=== PATIENT | female | born 1955 | race Caucasian/White ===

== ENCOUNTER 2021-03-12 17:06 | Emergency (ER) | payer BC, SELFPAY ==
--- NOTE | ~2021-03-12 | XR_ITS ---
EXAMINATION: XR CHEST CLINICAL INFORMATION: Chest pain. COMPARISON: Chest radiograph dated from 12/23/2018. TECHNIQUE: PA view of the chest was obtained. FINDINGS: No significant abnormality is noted involving the heart, lungs, mediastinum, bony thorax or soft tissues. XR/XR chest 1V IMPRESSION: No acute pulmonary disease. No significant change from prior.
--- NOTE | 2021-03-12 19:12 | ECG_ITS ---
Test Reason : CHEST PAIN Blood Pressure : / mmHG Vent. Rate : 055 BPM Atrial Rate : 055 BPM P-R Int : 142 ms QRS Dur : 078 ms QT Int : 422 ms P-R-T Axes : 070 032 038 degrees QTc Int : 403 ms Sinus bradycardia Otherwise normal ECG When compared with ECG of 23-DEC-2018 13:28, Nonspecific T wave abnormality is no longer Present Referred By: Generic ED Physician Electronically Signed By:JONATHAN CORTEZ MD
[2021-03-12 19:37] VITALS: BP 141/86; PULSE 65; RESP 16; TEMP 36.8; O2SAT 99; BMI 23.9
[2021-03-12 19:39] LABS: MANUAL DIFF FLAG NO
[2021-03-12 19:40] LABS: Basophils Percent Auto 0.4 % (0-2); Eosinophils Absolute Auto 0.1 X10*3/uL (0.0-0.4); Eosinophils Percent Auto 0.8 % (0-4); Imm Gran Abs Auto 0.01 X10*3/uL (0.00-0.03); Imm Gran Pct Auto 0.1 % (0.0-0.4); Lymphocytes Absolute Auto 2.9 X10*3/uL (1.2-4.9); Lymphocytes Percent Auto 34.5 % (20-40); Mean Corpuscular HGB Conc 32.6 g/dl (31.0-35.0); Mean Corpuscular Hemoglobin 29.7 pg (27.0-33.0); Mean Corpuscular Volume 91.1 fL (80-98); Mean Platelet Volume 12.4 fL (9.4-12.3); Monocytes Absolute Auto 0.6 X10*3/uL (0.1-1.2); Monocytes Percent Auto 6.8 % (2-11); Neutrophils Absolute Auto 4.8 X10*3/uL (2.0-8.3); Neutrophils Percent Auto 57.4 % (45-73); Platelet Count 217 X10*3/uL (160-400); Red Blood Count 4.72 X10*6/uL (4.20-5.50); Red Cell Distribution Width 12.8 % (11.0-16.0); White Blood Count 8.3 X10*3/uL (4.8-10.8)
[2021-03-12 20:00] LABS: Troponin-I High Sensitivity 5.4 ng/L (<3.5-17.0)
[2021-03-12 20:04] LABS: Anion Gap 12 (12-20); Blood Urea Nitrogen 15 mg/dL (9-16); Calcium 10.1 mg/dL (8.4-10.2); Carbon Dioxide 27 mmol/L (22-29); Chloride 108 mmol/L (96-108); Creatinine Clr Calc Pharmacy 50.4; Estimated Glomerular Filt Rate > 60; Glucose Random 95 mg/dL (60-115); Potassium 4.4 mmol/L (3.3-5.1); Sodium 143 mmol/L (135-145)
--- NOTE | 2021-03-12 22:54 | ED_ITS ---
HPI - Arrhythmia/Palpitations General Chief Complaint: Arrhythmia/Palpitations Stated Complaint: chest pain Time Seen by Provider: 03/12/21 22:53 Source: patient Mode of arrival: ambulatory Limitations: no limitations History of Present Illness complaint: rapid heart beat and heart racing Onset (ago): hour(s) (5+) Duration: now resolved Severity: moderate Context: occurred during rest Arrhythmia history: other (PALPITATIONS) Associated symptoms: anxiety Related Data Allergies Allergy/AdvReac Type Severity Reaction Status Date / Time No Known Allergies Allergy Verified 03/12/21 19:36 Review of Systems Review of Systems: Constitutional : No Weight loss, No Fever, No Chills ENT/Mouth : No sore throat, No Rhinorrhea Eyes: No Eye Pain, No Swelling Cardiovascular : no Chest Pain, no SOB, no Dyspnea on Exertion, No Orthopnea, No Edema, pos Palpitations Respiratory : No Cough, No Sputum Gastrointestinal : no Nausea, No Vomiting, No Diarrhea, No abdominal Pain, No Hematochezia, No Melena Genitourinary : No Dysuria, No Urinary Frequency Musculoskeletal : No joint pain, No Myalgias, No Joint Swelling Skin : No Skin Lesions, No rash Neuro : No Weakness, No Numbness, No Dizziness, No Headache Psych : pos Anxiety/Panic, No Depression Heme/Lymph: No Bruising, No Lymphadenopathy Endocrine : No Polyuria, No Polydipsia All other systems reviewed and are negative [facility] Past Medical History Attestation statement: The following information was validated with the patient. Medical History Hypertension Social History Social History (Updated 03/13/21 @ 00:04 by Jennifer Tenorio DO) Patient Tobacco Use Status: Never used Tobacco Physical Exam Vital Signs: Vital Signs: Last Vital Signs Temp 98.2 F 03/12/21 19:37 Pulse 49 L 03/12/21 23:27 Resp 16 03/12/21 23:27 BP 131/47 L 03/12/21 23:27 Pulse Ox 100 03/12/21 23:27 Body Mass Index 23.9 Appearance: Alert. Oriented X3. No acute distress. Eyes: Pupils equal, round and reactive to light. ENT: Pharynx normal. Neck: Normal inspection. Neck supple. CVS: Normal heart rate and rhythm. Pulses normal. Respiratory: No respiratory distress. Breath sounds normal. Abdomen: Soft and non-tender. Skin: Skin warm and dry. Normal skin color. Normal skin turgor. Extremities: No lower extremity edema. No calf ttp Neuro: Oriented X 3. No motor deficit. No sensory deficit. Course Course Course Narrative: flat trop x 2 MDM - Arrhythmia/Palpitations MDM Narrative Medical decision making narrative: 65 yo female with hx of HTN and palpitations has resolved episode - no pain or sob or signs of DVT/risk factors for VTE - doubt PE, seems unusual for ACS, will obtain repeat trop if negative suspect induced stress from her job Lab Data Result diagrams: 03/12/21 19:28 03/12/21 19:28 Labs: Lab Results 03/12/21 03/12/21 03/12/21 Range/Units 19:28 19:28 19:28 WBC 8.3 (4.8-10.8) X10*3/uL RBC 4.72 (4.20-5.50) X10*6/uL Hgb 14.0 (12.0-16.0) g/dl Hct 43.0 (37-47) % MCV 91.1 (80-98) fL MCH 29.7 (27.0-33.0) pg MCHC 32.6 (31.0-35.0) g/dl RDW 12.8 (11.0-16.0) % Plt Count 217 (160-400) X10*3/uL MPV 12.4 H (9.4-12.3) fL Immature Gran % (Auto) 0.1 (0.0-0.4) % Neut % (Auto) 57.4 (45-73) % Lymph % (Auto) 34.5 (20-40) % Edwards % (Auto) 6.8 (2-11) % Eos % (Auto) 0.8 (0-4) % Baso % (Auto) 0.4 (0-2) % Lymph # (Auto) 2.9 (1.2-4.9) X10*3/uL Edwards # (Auto) 0.6 (0.1-1.2) X10*3/uL Eos # (Auto) 0.1 (0.0-0.4) X10*3/uL Baso # (Auto) 0.0 (0.0-0.2) X10*3/uL Abs Immat Gran (auto) 0.01 (0.00-0.03) X10*3/uL Absolute Neuts (auto) 4.8 (2.0-8.3) X10*3/uL Absolute Nucleated RBC 0.000 (0.0-0.012) X10*3/uL Nucleated RBC % (auto) 0.0 (0.0-0.2) /100WBC Sodium 143 (135-145) mmol/L Potassium 4.4 (3.3-5.1) mmol/L Chloride 108 (96-108) mmol/L Carbon Dioxide 27 (22-29) mmol/L Anion Gap 12 (12-20) BUN 15 (9-16) mg/dL Creatinine 0.92 (0.5-1.4) mg/dL Estim Creat Clear Calc 50.4 Estimated GFR > 60 Random Glucose 95 (60-115) mg/dL Calcium 10.1 (8.4-10.2) mg/dL Troponin I High Sens 5.4 (<3.5-17.0) ng/L 03/12/21 Range/Units 23:26 WBC (4.8-10.8) X10*3/uL RBC (4.20-5.50) X10*6/uL Hgb (12.0-16.0) g/dl Hct (37-47) % MCV (80-98) fL MCH (27.0-33.0) pg MCHC (31.0-35.0) g/dl RDW (11.0-16.0) % Plt Count (160-400) X10*3/uL MPV (9.4-12.3) fL Immature Gran % (Auto) (0.0-0.4) % Neut % (Auto) (45-73) % Lymph % (Auto) (20-40) % Edwards % (Auto) (2-11) % Eos % (Auto) (0-4) % Baso % (Auto) (0-2) % Lymph # (Auto) (1.2-4.9) X10*3/uL Edwards # (Auto) (0.1-1.2) X10*3/uL Eos # (Auto) (0.0-0.4) X10*3/uL Baso # (Auto) (0.0-0.2) X10*3/uL Abs Immat Gran (auto) (0.00-0.03) X10*3/uL Absolute Neuts (auto) (2.0-8.3) X10*3/uL Absolute Nucleated RBC (0.0-0.012) X10*3/uL Nucleated RBC % (auto) (0.0-0.2) /100WBC Sodium (135-145) mmol/L Potassium (3.3-5.1) mmol/L Chloride (96-108) mmol/L Carbon Dioxide (22-29) mmol/L Anion Gap (12-20) BUN (9-16) mg/dL Creatinine (0.5-1.4) mg/dL Estim Creat Clear Calc Estimated GFR Random Glucose (60-115) mg/dL Calcium (8.4-10.2) mg/dL Troponin I High Sens 5.2 (<3.5-17.0) ng/L ECG Data Attestation: I personally reviewed and interpreted this ECG as follows: ECG interpretation date: 03/12/21 ECG interpretation time: 22:54 Interpretation: Rate: 55 Rhythm: sinus bradycardia [place]: normal Normal P waves. Normal LAURENCE. Normal QRS complex. ST T wave : nonspecific, no ISABELLA qTC: normal prior studies: no acute ischemia The study has been interpreted contemporaneously by me. . Discharge Plan Discharge Clinical Impression: Palpitations Patient Disposition: Home, Self-Care Instructions: Heart Palpitations (ED) Additional Instructions: return to ED for any worsening symptoms or concerns follow up with your primary care if this persists Stand Alone Forms: Work/School Release
--- NOTE | 2021-03-12 23:22 | PC.NURSE ---
at bed side. PT being drawn for troponin lab now.
--- NOTE | 2021-03-12 23:26 | PC.NURSE ---
at bedside for primary eval. Repeat Troponin obtained and sent. VSS at this time.
[2021-03-12 23:27] VITALS: BP 131/47; PULSE 49; RESP 16; O2SAT 100
[2021-03-12 23:55] LABS: Troponin-I High Sensitivity 5.2 ng/L (<3.5-17.0)
== END 2021-03-13 00:26 | disposition home or self-care (01) ==
LOC: HO.ED 03-13 00:17
PROVIDERS: Emergency Provider Emergency Medicine; PCP Internal Medicine
DX: R00.2 Palpitations (principal); R07.9 Chest pain, unspecified; F41.1 Generalized anxiety disorder; F43.0 Acute stress reaction; Z79.899 Other long term (current) drug therapy
CPT/HCPCS: 36415; 71045; 80048; 84484; 85025; 93005; 99284

== ENCOUNTER 2024-10-22 19:50 | Emergency (ER) | payer MEDICARE, SELFPAY ==
--- NOTE | ~2024-10-22 | XR_ITS ---
CLINICAL HISTORY: FOOSH 3 view left hand Comparison: None Findings: Osteopenia. Obliquely oriented lucency of the articulation of the distal radial carpal row of the trapezium/trapezoid, may be artifactual related to projection, seen only on series 1, versus subtle fracture. If concern persists CT or MRI to assess for marrow edema may be helpful. Severe osteoarthritic changes in the 1st carpometacarpal joint. No radiopaque foreign body. Mildly diffuse soft tissue swelling. IMPRESSION: Artifact versus subtle nondisplaced fracture along the distal radiocarpal row described. This document has been electronically signed by: José Miguel Vallejo MD on 10/22/2024 20:37:52
--- NOTE | ~2024-10-22 | XR_ITS ---
CLINICAL HISTORY: FOOSH 4 view left wrist Comparison: None Findings: Osteopenia. No acute fracture. Severe osteoarthritic changes of the 1st carpometacarpal joint. No radiopaque foreign body. Mildly diffuse soft tissue swelling. IMPRESSION: No acute fracture. This document has been electronically signed by: José Miguel Vallejo MD on 10/22/2024 20:38:27
[2024-10-22 19:52] VITALS: BP 155/75; PULSE 67; RESP 16; TEMP 36.8; O2SAT 97; BMI 23.9
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
--- OUTSIDE RECORDS SUMMARY | 2024-10-22 22:05 | XMS_ITS | Patient Health Record ---
Author Organization [facility] Address [address] [place] [address] Care Team Providers Care Assistant Media Planner Name Role Phone Todd Pretty VALDES Primary Care Provider Unavail able Freddie Cunningham Unavailable [phone] Allergies No Known Allergies Reason For Referral No Information Medications Medication SIG (Take, Route, Frequency, Duration) Notes Start Date End Date Status amLODIPine Besylate 2.5 MG TAKE 1 TABLET BY MOUTH EVERY DAY Oral for 90 Days Active Lisinopril 20 MG Oral for 90 A ctive Calcium Citrate Acti ve Estradiol 0.1 MG/GM _insert 1 GRAM VAGINALLY TWICE A WEEK Vaginal for 90 Days Active Voltaren 1 % as directed Externally 12/20/2023 Active Escitalopram Oxalate 5 MG TAKE 1 TABLET BY MOUTH EVERY DAY Oral for 90 Days Not-Taking Vitamin D Active Glucosamine Chond MSM Formula Active Social History Tobacco Use: Social History Observation Description Date Details (start date - stop date) Former Smoker NA - NA Tobacco Use/Smoking Question Answer Notes Are you a: former smoker Additional Findings: Tobacco Non-User Current no n-smoker Alcohol Screen Question Answer Notes Did you have a drink containing alcohol in the p ast year? No Points 0 Interpretation Negative Tobacco use other than smoking: Question Answer Notes Are you an other tobacco user? No Problems Problem Type SNOMED Code ICD Code Onset Dates Problem Status W/U Status Risk Notes Problem Acquired hallux rigidus (5260281) Hallux rigidus, left foot (M20.22) Active confirmed Problem Acquired hallux rigidus (8445242) Hallux rigidus, right foot (M20.21) Active confirmed Vital Signs Height 5 ft 3 in in 12/20/2023 Weight 140 lbs 12/20/2023 BMI 24.80 kg/m2 12/20/2023 Encounters Encounter Location Date Provider Diagnosis [facility] [address] [address] 12/20/2023 Freddie Cunningham Pain in left foot M79.672 ; Pain in right foot M79.671 ; Hallux rigidus, left foot M20.22 and Hallux rigidus, right foot M20.21 [facility] [address] [address] 11/01/2023 Freddie Cunningham Assessments Encounter Date Diagnosis (ICD Code) Assessment Notes Treatment Notes Treatment Clinical Notes Section Notes 12/20/2023 Pain in right foot (ICD-10 - M79.671) 12/20/2023 Pain in left foot (ICD-10 - M79.672) 12/20/2023 Hallux rigidus, left foot (ICD-10 - M20.22) 12/20/2023 Hallux rigidus, right foot (ICD-10 - M20.21) Plan Of Treatment Pending Test Test Name Order Date X ray : Foot, left 2V 01/24/2014 X ray : Foot, right 2V 01/24/2014 X ray : Foot, left 3V 12/20/2023 X ray : Foot, left 3V 2020 X ray : Foot, right 3V 12/20/2023 X ray : Foot, right 3V 2020 Insurance Providers Payer Name Payer Address Payer Phone Subscriber Number Group Number Insured Name Patient Relationship to Insured Coverage Start Date Coverage End Date [employer] 65 Medicare Preferred [address] [place] [address] [phone] [id number] Trinidad Raymond Self - patient is the insured Medical (General) History Medical History History ICD Code Arthritis High blood pressure Measles Warts Hallux Valgus 735.0 Hallux Valgus 729.5 Pain in Limb 719.97 Arthritis - Degenerative 726.91 Exostosis 735.4 Hammer toe undefined Anxiety Back,Hip,and Knee pain covid-19 Surgical History Surgery Date(Month/Year) section 1979 bunionectomy L & R 2009 Hospitalization History Reason Date(Month/Year) [facility] ? heart attack 2013
--- OUTSIDE RECORDS SUMMARY | 2024-10-22 22:05 | XMS_ITS ---
[facility] Address [address] [place] [address] Care Team Providers Care Transmission Mechanic Name Role Phone Todd Pretty VALDES Primary Care Provider Unavail able Freddie Cunningham Unavailable [phone] Allergies No Known Allergies REASON FOR VISIT Last PCP Viisit: 11/2023, Foot pain Medications Medication SIG (Take, Route, Frequency, Duration) Notes Start Date End Date Status Calcium Citrate Acti ve Voltaren 1 % as directed Externally 12/20/2023 Active Escitalopram Oxalate 5 MG TAKE 1 TABLET BY MOUTH EVERY DAY Oral for 90 Days Not-Taking Vitamin D Active Glucosamine Chond MSM Formula Active amLODIPine Besylate 2.5 MG TAKE 1 TABLET BY MOUTH EVERY DAY Oral for 90 Days Active Lisinopril 20 MG Oral for 90 A ctive Estradiol 0.1 MG/GM _insert 1 GRAM VAGINALLY TWICE A WEEK Vaginal for 90 Days Active Social History Tobacco Use: Social History [...] Are you an other tobacco user? No Vital Signs Height 5 ft 3 in in 12/20/2023 Weight 140 lbs 12/20/2023 BMI 24.80 kg/m2 12/20/2023 Encounters Encounter Location Date Provider Diagnosis [facility] [address] [place] [address] 12/20/2023 Freddie Cunningham Pain in left foot M79.672 ; Pain in right foot M79.671 ; Hallux rigidus, left foot M20.22 and Hallux rigidus, right foot M20.21 Assessments Encounter Date Diagnosis (ICD Code) Assessment Notes Treatment Notes Treatment Clinical Notes Section Notes 12/20/2023 Pain in left foot (ICD-10 - M79.672) 12/20/2023 Pain in right foot (ICD-10 - M79.671) 12/20/2023 Hallux rigidus, left foot (ICD-10 - M20.22) 12/20/2023 Hallux rigidus, right foot (ICD-10 - M20.21) Plan Of Treatment Medication Medication Name Sig Start Date Stop Date Notes Voltaren 1 % as directed Externally 12/20/2023 Pending Test Test Name Order Date X ray : Foot, left 3V 12/20/2023 X ray : Foot, right 3V 12/20/2023 Next Appt Details Follow Up: prn, Reason: Progress Notes * Trinidad CELAYA HDOB:1954 (68 yo F)Acc No.[id number]:12/20/2023 Progress Notes Patient:?Segundo Trinidad H Provider:?Freddie Cunningham DPM :1955???Age:68 Y???Sex:Female D ate:12/20/2023 Address:[address] [place], [place] [id number] Pcp:KEISHA Mac Subjective: * Chief Complaints: * ??? Last PCP Viisit: 11/2023F oot pain * HPI: ???Foot Pain:?Nature:?aching, stiffness.?Location?B/L, Great toe joint, L>R.?Duration:?several months.?Course:?worse.?Aggrevated:?shoes.?Treatments:?previous cheilectomy wilner first mtpj 2010 by myself.?Quality/Severity?5, scale 1-10--left at worst and currently painfree.? * ROS:?General/Constitutional:?Nausea?denies, denies.?Vomiting?denies, denies.?Hunger Thirst?denies, denies.?Loss appetite?denies, denies.?Chills?denies, denies.?Fatigue?denies, denies.?Fever?denies, denies.?Night Sweats denies, denies.?Unexplained weight loss?denies, denies.?Unexplained weight gain?denies.?Ophthalmologic:?Blurred vision?denies.?Red eye?denies.?HEENTM:?Dentures?denies, denies.?Dizziness?admits, denies.?Glasses/contacts?admits, denies.?Retinopathy?denies, denies.?Blurred/double vision?denies, denies.?TMJ?denies, denies.?Discharge/drainage?denies, denies.?Implants?denies, denies.?Sore throat?denies.?Dental implants?denies.?Hard of hearing ?denies, denies.?Difficulty chewing/swallowing/speaking?denies, denies.?Nose bleeds?denies, denies.?Sore mouth?denies, denies.?Swollen glands?denies.?Respiratory:?On Oxygen?denies, denies.?Pneumonia/pleurisy?denies, denies.?Bronchitis?denies, denies.?Emphysema?denies, denies.?Coughing?denies, denies.?Cough blood?denies, denies.?Shortness of breath?denies, denies.?Wheezing?denies, denies.?Cardiovascular:?Pacemaker?denies, denies.?MVP?denies, denies.?WPW?denies, denies.?CHF?denies, denies.?Heart attack?denies, denies.?Septal defect?denies, denies.?Rapid beat?denies, denies.?Chest pain ?admits, denies.?Atrial Fib.?denies, denies.?Murmur/Palpitations?denies, denies.?Gastrointestinal:?Hemorrhoids?denies, denies.?Stomach/Abdominal pain?denies, denies.?Dark blood stool?denies, denies.?Irritable bowel ?denies, denies.?Constipation?admits, denies.?Diarrhea?denies, denies.?Vomiting?denies.?Hematology:?Swelling?denies, denies.?Clots?denies.?Varicose Veins?denies.?Bruising?denies, denies.?Bleeding problem?denies, denies.?Genitourinary:?Blood urine?denies, denies.?Frequent/Painfu/urination/bladder control?denies, denies.?Kidney stones?denies, denies.?Infection (UTI)?denies, denies.?Nephropathy?denies, denies.?sex trans dis (STD)?denies.?Prostate?denies.?Musculoskeletal:?Hammertoes?admits, denies.?Bunions?admits, denies.?Scoliosis/kyphosis?denies.?Back Pain?admits.?Muscle Cramps/ Resting?denies.?Muscle cramps / walking?denies, denies.?Generalized aches and pains?admits, denies.?Weakness?denies, denies.?Integ.:?Powell?denies, denies.?Scars?denies, denies.?Corns/calluses?denies, denies.?Ingrown nails?denies, denies.?Painful nails?denies, denies.?Open Sores?denies.?Rashes?denies, denies.?Neurologic:?Difficulty sleeping?denies, denies.?Bipolar?denies.?Brain disorder?denies, denies.?Numbness?admits.?Balance trouble?denies, denies.?Confusion?denies, denies.?Fainting/blackouts?denies, denies.?Headache?denies.?Tingling?denies.?Tremors?denies, denies.? * Medical History:? * Surgical History:? s ection 1979bunionectomy L & R 2009 * Hospitalization/Major Diagno stic Procedure:?[facility]- ? heart attack 2012 * Family History:?Mother: dece ased, poor circulation, alzheimer's dementia, diagnosed with Unspecified essential hypertension.?Father: , ALS, diagnosed with Unspecified essential hypertension.?Son(s): alive.?Siblings: cancer, diabetes, high blood pressure.?Spouse: alive.?1 son(s) . .? * Social History:?Tobacco Use:?Tobacco Use/Smoking?Are you a:?former smoker ?Additional Findings: Tobacco Non-User?Current non-smoker ?Tobacco use other than smoking?Are you an other tobacco user??No ???Drugs/Alcohol:?Drugs?Have you used drugs other than those for medical reasons in the past 12 months??No ?Alcohol Screen?Did you have a drink containing alcohol in the past year??No ?Points?0 ?Interpretation?Negative ???Miscellaneous:?Caffeine: yes, 2-3 cups per day. ?Children: 1. ?Exercise: yes, walking and bike riding. ?Living with: spouse. ?Marital status: , . ?Occupation: [employer]. * Medications:?TakingamLODIPin e Besylate 2.5 MG Tablet TAKE 1 TABLET BY MOUTH EVERY DAY Oral Lisinopril 20 MG Tablet Oral Estradiol 0.1 MG/GM Cream _insert 1 GRAM VAGINALLY TWICE A WEEK Vaginal Calcium Citrate Glucosamine Chond MSM Formula Vitamin D Taking amLODIPine Besylate 2.5 MG Tablet TAKE 1 TABLET BY MOUTH EVERY DAY Oral Taking Lisinopril 20 MG Tablet Oral Taking Estradiol 0.1 MG/GM Cream _insert 1 GRAM VAGINALLY TWICE A WEEK Vaginal Taking Calcium Citrate Taking Glucosamine Chond MSM Formula Taking Vitamin D Not-Taking/PRNEscitalopram Oxalate 5 MG Tablet TAKE 1 TABLET BY MOUTH EVERY DAY Oral Medication List reviewed and reconciled with the patientNot-Taking/PRN Escitalopram Oxalate 5 MG Tablet TAKE 1 TABLET BY MOUTH EVERY DAY Oral Medication List reviewed and reconciled with the patient * Allergies:?N.K.D.A.yes[Aller gies Verified] Objective: * Vitals:?Ht: 5 ft 3 in, Wt:14 0, BMI:24.80, Shoe size: 8, Ht-cm: 160.02 cm, Wt-k.13 kg. * Examination: ???General Examination: ?GENERAL APPEARANCE:?pleasant, alert, well nourished, well developed, well hydrated, with good attention to hygene/body habitus, and in no acute distress.?ORIENTED:?person,place, and time.?Neurological: ?SENSORY:?Neurological exam is normal, pain sensation normal, vibration sensation intact, pinprick sensation is normal in the lower extremities, denies, tingling, burning, anesthesia, paresthesia, hyperesthesia, B/L.?TINEL'S COMPRESSION:?Negative tarsal tunnel, ayana pedis, and medial calcaneal nerves B/L.?BABINSKI REFLEX:?absent.?Neuroma Pain: ?PALPATION:?No interspace pain noted on palpation.?Vascular: ?DP PULSES:?2/4, B/L.?PT PULSES:?2/4, B/L.?CAPILLARY FILL TIME:?3 secs. per digit, B/L.?SKIN TEMPERTURE GRADIENT OF THE LOWER EXTERMITIES:?warm to cool, proximal to distal, B/L.?HAIR GROWTH/TEXTURE/ELASTICITY/TURGOR:?normal, B/L.?PIGMENTATION:?normal, B/L.?EDEMA:?no edema.?TELANGECTASIA:?absent.?VARICOSITIES:?absent.?Dermatologic: ?SKIN FINDINGS:?Skin exam reveals normal texture, elasticity, and tugor. There are no masses. The interspaces are clear, B/L .?Orthopedic: ?MUSCLE STRENGTH:?5/5 all groups in a symmetrical fashion , B/L.?GAIT ABNORMALITY:?pronated, abducted, B/L.?BUNION:? Dorsally prominent 1st MPJ, (+) Pain on palpation, B/L, Limited 1st MPJ Dorsal ROM, Limited 1st MPJ Plantar ROM.?X-Rays - IMAGING REPORT: ?Clinical Indication(s):? Evaluate Biomechanical Deformity.?Views:? 3 views of Foot, B/L.?HAV:? there is asymmetrical narrowing of the 1st MPJ joint space, there is increased density of the 1st MPJ with asymmetrical joint space narrowing, there is squaring of the 1st MTH, there is an exostosis located at the dorsal aspect of the 1st MTH, there is an exostosis located at the dorsal aspect of the base of the proximal phalanx--regrowth of bone noted wilner first mtpj from previous sx, increased Hallux Abductus angle-left.? Assessment: * Assessment: 1.?Pain in right foot - M79. 671?2.?Pain in left foot - M79.672 (Primary)?3.?Hallux rigidus, left foot - M20.22?4.?Hallux rigidus, right foot - M20.21? Plan: * Treatment: 2.?Pain in right foot?Imaging: X ray : Foot, right 3V * Procedure Codes:?85724 X-RAY EXAM OF LEFT FOOT 3V, Modifiers: 26 , [id number] X-RAY EXAM OF RIGHT FOOT 3V, Modifiers: 26 , RT * Preventive Medicine:? ??Counseling:?Discussion:?-03: Office or other outpatient visit for the evaluation and management of a new patient, which required a medically appropriate history and/or examination and LOW level of DECISION MAKING for: 1 STABLE ACUTE UNCOMPLICATED PROBLEM, 2 OR MORE MINOR PROBLEMS, OR 1 STABLE CHRONIC PROBLEM, THAT POSE(S) A LOW RISK FOR MORBIDITY/MORTALITY. The visit on the day of the encounter encompassed interpreting the data and educating the patient as to the nature of their condition, treatment options available according to their individual PMH, meds, allergies, and overall health/living conditions, as well as any potential risks or complications that may occur from a failure to adhere to, and participate in, the recommended course of therapy. The discussion included a complete verbal, and/or written explanation of the examination results, any x-rays taken, the proposed diagnosis, and outline of the treatment plan. A schedule for future care needs was also explained. The patient verbalized an understanding of the instructions at this time and agreed to be an active participant in their treatment. If the patient should think of any questions or concerns after the visit, I have encouraged the patient to call the office.?Metatarsalgea:?I explained to the patient the possible etiologies of their Metatarsalgea Foot pain, including foot type/shoegear/activity level/exercise routine and the risks/benefits of all the different treatment options for pain including: No treatment at all, Rest, Ice, NSAIDs(only if well tolerated after meals), New/supportive Shoegear, Strappings and Tapings, Foot/Ankle AFO Bracing, Stretching exercises, Deep Tissue Massage, Arch support/shoe inserts, Custom orthoses, Topical analgesics including Aspercream/Voltaren gel, Physical Therapy, Cortisone injection therapy, EPAT/ESWT. Advantages and disadvantages of each option were discussed and the patients questions re: shoegear, custom vs prefabricated inserts, activity level, PO vs Topical medications (and their respective potential complications/drug interactions/side effects), and consistency in home treatment regimens for optimal success were answered to their verbally confirmed satisfaction, Topical analgesics of Aspercream or Voltaren gel.? * Follow Up:?prn * Images: * Sign off status: Completed true * Provider:?Freddie Cunningham DPM Date:? 024 Generated for Shaynai eleuterio/Aniya/eTransmitting on:?10/22/2024 10:05 PM EDT History and Physical Notes * HPI (History of Present Illness) Category Sub-Category Detail Notes Category Not es Foot Pain Aggrevated: shoes Course: worse Duration: several months Nature: aching, stiffness Treatments: previous cheilectomy wilner first mtpj 2010 by myself Quality/Severity 5, scale 1-10--left at worst and currently painfree Location B/L, Great toe joint , L>R Examination Category Sub-Category Detail Notes Category Not es Neuroma Pain PALPATION: No interspace pain noted on palpation Neurological SENSORY: Neurological exa m is normal, pain sensation normal, vibration sensation intact, pinprick sensation is normal in the lower extremities, denies, tingling, burning, anesthesia, paresthesia, hyperesthesia, B/L BABINSKI REFLEX: absent TINEL'S COMPRESSION: Negative tarsal marcos renetta, ayana pedis, and medial calcaneal nerves B/L Dermatologic SKIN FINDINGS: Skin exam reveal s normal texture, elasticity, and tugor. There are no masses. The interspaces are clear, B/L Orthopedic GAIT ABNORMALITY: pronated, abducted, B/L BUNION: Dorsally prominent 1 st MPJ, (+) Pain on palpation, B/L, Limited 1st MPJ Dorsal ROM, Limited 1st MPJ Plantar ROM MUSCLE STRENGTH: 5/5 all groups in a symmetrical fashion , B/L General Examination GENERAL APPEARANCE: pleasant , alert, well nourished, well developed, well hydrated, with good attention to hygene/body habitus, and in no acute distress ORIENTED: person,place, and ti me Vascular DP PULSES (B): 2/4, B/L PT PULSES (B): 2/4, B/L CAPILLARY FILL TIME: 3 secs. per digit, B/L TEMPERTURE GRADIENT (C): warm to cool, p roximal to distal, B/L TROPHIC CONDITION-TEXTURE/ELASTICITY/TURGOR/HAIR GROWTH (B): normal, B/L EDEMA (C): no edema TELANGECTASIA: absent VARICOSITIES: absent PIGMENTATION: normal, B/L X-Rays - IMAGING REPORT HAV: there is asymmetrical narrowing of the 1st MPJ joint space, there is increased density of the 1st MPJ with asymmetrical joint space narrowing, there is squaring of the 1st MTH, there is an exostosis located at the dorsal aspect of the 1st MTH, there is an exostosis located at the dorsal aspect of the base of the proximal phalanx--regrowth of bone noted wilner first mtpj from previous sx, increased Hallux Abductus angle-left Views: 3 views of Foot, B/L Clinical Indication(s): Evaluate Biomech anical Deformity
--- OUTSIDE RECORDS SUMMARY | 2024-10-22 22:05 | XMS_ITS ---
Author Organization [facility] Address [address] [place] [address] Care Team Providers Care Embedded Processor Name Role Phone Todd Pretty VALDES Primary Care Provider Unavail Freddie Saba Unavailable [phone] REASON FOR VISIT Bunion Surgery dates Encounters Encounter Location Date Provider Diagnosis [facility] [address] [place] [address] 10/16/2023 Freddie Cunningham Plan Of Treatment No Information Progress Notes * Trinidad CELAYA HDOB:1954 (68 yo F)Acc No.[id number]:10/16/2023 Patient:?Trinidad Celaya :1955???Age:68 Y???Sex:Female Address[address] [address] * true * Date:? Generated for Printi ng/Faxing/eTransmitting on:?10/22/2024 10:05 PM EDT
--- NOTE | 2024-10-22 22:14 | PC.NURSE ---
Provider to [place] [id number] for eval and splinting procedure, pt tolerating well.
[2024-10-22 22:41] VITALS: BP 173/76; PULSE 69; RESP 18; TEMP 36.5; O2SAT 100
[2024-10-22 22:43] VITALS: BP 171/61; PULSE 57; RESP 18; TEMP 36.5; O2SAT 98
== END 2024-10-22 22:45 | disposition home or self-care (01) ==
PROVIDERS: Emergency Provider Emergency Medicine; PCP Nurse Practitioner Family
DX: S63.502A Unspecified sprain of left wrist, initial encounter (principal); M79.642 Pain in left hand; X58.XXXA Exposure to other specified factors, initial encounter; V17.0XXA Pedal cycle driver injured in collision with fixed or stationary object in nontraffic accident, initial encounter; Y93.9 Activity, unspecified; Y92.9 Unspecified place or not applicable; Y99.8 Other external cause status
CPT/HCPCS: 29125; 73110; 73130; 99283; 99284

== ENCOUNTER → 2024-10-22 19:54 | Outpatient (BNV) | payer BC, SELFPAY | PROVIDERS: Visit Provider Radiology Diagnostic Radiology | DX: M85.842 Other specified disorders of bone density and structure, left hand (principal); M18.12 Unilateral primary osteoarthritis of first carpometacarpal joint, left hand | CPT/HCPCS: 73110; 73130 ==

== ENCOUNTER 2024-11-08 00:03 | Inpatient (IN) | payer MEDICARE, SELFPAY ==
[2024-11-08] VITALS (13 sets, daily range): BP systolic 105–178; BP diastolic 54–98; PULSE 53–80; RESP 16–20; TEMP 36.2–37.2; O2SAT 95–100; BMI 24.4; BMI 24.8
--- NOTE | 2024-11-08 | ECG_ITS ---
Test Reason : md orders Blood Pressure : */* mmHG Vent. Rate : 65 BPM Atrial Rate : 65 BPM P-R Int : 152 ms QRS Dur : 80 ms QT Int : 448 ms P-R-T Axes : 58 8 47 degrees QTcB Int : 465 ms Normal sinus rhythm Possible Left atrial enlargement Borderline ECG When compared with ECG of 12-Mar-2021 19:50, QT has lengthened Referred By: Rolando Lynn Electronically Signed By: NILSON CH
--- NOTE | ~2024-11-08 | CT_ITS ---
EXAMINATION: CT ANGIOGRAM HEAD AND NECK CLINICAL INFORMATION: Dizziness, rule out stroke. COMPARISON: None available. TECHNIQUE: Noncontrast axial imaging of the head was performed. This was followed by test bolus sequences and head and neck intravenous bolus administration 70 mL of Omnipaque 350. Helical imaging was performed in the axial plane from the aortic arch to the skull vertex. The data was processed at the interventional radiology technologist's workstation for generation of MIP sequences. Angled MIPs and volume rendered reformatted images were also generated at an offline 3D workstation. Stenoses are assessed in accordance with NASCET criteria unless otherwise indicated. This CT examination was performed using dose optimization techniques as appropriate, variously including the following: *Automated exposure control *Adjustment of mA and/or kV according to patient size (this includes techniques or standardized protocols for targeted exams where dose is matched to indication/reason for exam; i.e. extremities or head) *Use of iterative reconstruction technique FINDINGS: NONCONTRAST HEAD CT: There is no evidence of intracranial hemorrhage or extra-axial fluid collection. There is no mass effect, or edema. No CT evidence of acute territorial infarct. Ventricles, sulci, and cisterns are normal in size and configuration for patient age. No hydrocephalus. No midline shift. No significant white matter abnormalities. Globes and orbital contents image normally. No extracranial soft tissue abnormalities. The paranasal sinuses, mastoid air cells, and tympanic cavities are normally aerated. No suspicious bony abnormalities. NECK CTA: -AORTIC ARCH: Normal in caliber. Mild atheromatous calcification. Three-vessel branching pattern. -GREAT VESSEL ORIGINS: Widely patent. No stenosis. -RIGHT COMMON CAROTID ARTERY: Normal in course and caliber to the level of the bifurcation. -CERVICAL RIGHT INTERNAL CAROTID ARTERY: Normal opacification without focal stenosis or occlusion. -LEFT COMMON CAROTID ARTERY: Normal in course and caliber to the level of the bifurcation. -CERVICAL LEFT INTERNAL CAROTID ARTERY: Mild calcific atherosclerotic disease of the carotid bulb and proximal internal carotid artery resulting in approximate 30% short segment stenosis. -CERVICAL RIGHT VERTEBRAL ARTERY: Codominant. Normal in course and caliber into the skull base. -CERVICAL LEFT VERTEBRAL ARTERY: Codominant. Normal in course and caliber into the skull base. OTHER, SOFT TISSUES: -No lymphadenopathy or mass. No abnormal fluid collection or soft tissue swelling. -Normal thyroid. -Imaged superior mediastinal structures normal. -Imaged lung apices clear. CTA OF THE BRAIN: -INTRACRANIAL INTERNAL CAROTID ARTERIES: No focal stenosis or occlusion. -RIGHT ANTERIOR CEREBRAL ARTERY: Normal A1 segment.. Normal arborization of the distal segments. -LEFT ANTERIOR CEREBRAL ARTERY: Normal A1 segment.. Normal arborization of the distal segments. -ANTERIOR COMMUNICATING ARTERY: Normal. -RIGHT MIDDLE CEREBRAL ARTERY: Normal M1 segment of the MCA without focal stenosis or occlusion. Normal bifurcation. Normal arborization of the distal segments. -LEFT MIDDLE CEREBRAL ARTERY: Normal M1 segment of the MCA without focal stenosis or occlusion. Normal bifurcation. Normal arborization of the distal segments. -RIGHT VERTEBRAL ARTERY V4: Normal in course and caliber. Normal PICA branch. -LEFT VERTEBRAL ARTERY V4: Normal in course and caliber. Normal PICA branch. -BASILAR ARTERY: Normal without focal stenosis or occlusion. Normal appearance of the proximal superior cerebellar arteries. Normal basilar tip. -RIGHT POSTERIOR CEREBRAL ARTERY: Normal P1 segment. Normal opacification of the distal CONSULTING INTERN segments. -LEFT POSTERIOR CEREBRAL ARTERY: The P1 segment is diminutive. origin of the CONSULTING INTERN with robust opacification of the posterior communicating artery. Normal opacification of the distal CONSULTING INTERN segments. -POSTERIOR COMMUNICATING ARTERIES: The right is small but present. Left is as above. Normal opacification of the superior sagittal, straight, transverse, and sigmoid sinuses. No venous thrombosis. No space-occupying hemorrhage or definite evolving infarct. CT/CT angio head neck IMPRESSION: NONCONTRAST HEAD CT: 1. No intracranial hemorrhage or mass effect. No CT evidence of acute territorial infarct. CTA NECK: 1. There is an approximate 30% stenosis of the left ICA at the origin secondary to predominantly soft plaque. 2. There is no significant stenosis of the right ICA at the origin. There is minimal calcific and soft plaque. 3. Both vertebral arteries are widely patent throughout their course and at their origins. CTA HEAD: 1. There is no evidence of significant stenosis, occlusion, dissection, or aneurysm of the major intracranial arterial vasculature. 2. There is a persistent origin of the left CONSULTING INTERN. 3. The major cortical and dural venous sinuses are patent. Electronically signed by: Alf Perez MD 11/08/2024 11:45 AM EDT
--- NOTE | ~2024-11-08 | MR_ITS ---
EXAMINATION: MR BRAIN WITHOUT CONTRAST CLINICAL INFORMATION: Dizziness, rule out CVA. COMPARISON: No prior MRI. CT angiogram head and neck performed earlier same day. TECHNIQUE: MRI of the brain was obtained using routine sequences without contrast. Exam performed on a 1.5 [place]ma Siemens high-field unit. Standard sequences utilized. FINDINGS: There is no diffusion restriction. There is no intracranial hemorrhage, acute infarction, mass effect, or edema. Ventricles, sulci, and cisterns are normal in size and configuration for patient age. No shift of midline. No abnormal hemosiderin deposition is identified. There are a few scattered punctate foci of white matter T2 hyperintensity in the periventricular, subcortical, and hemispheric deep white matter. These foci are entirely nonspecific, but statistically are most likely parts counter representative of small vessel ischemic changes. Midline structures appear normally formed. The pituitary gland appears normal. Posterior fossa structures appear normal. Cerebellar tonsils are appropriately located. Major flow voids are preserved within the skull base. The globes and orbital contents demonstrate no abnormalities. Paranasal sinuses are clear bilaterally. Nasal septum is left deviated without spur. The mastoids and tympanic cavities are normally aerated. Extracranial soft tissues demonstrate no abnormalities. No suspicious bone marrow changes are evident. Atlantoaxial joint is normal. MR/MR head/brain wo con IMPRESSION: 1. No evidence of intracranial hemorrhage, acute infarction, mass effect, or edema. 2. Minimal white matter changes of small vessel ischemia. Electronically signed by: Alf Perez MD 11/08/2024 12:57 PM EDT
[2024-11-08 00:35] LABS: MANUAL DIFF FLAG NO
[2024-11-08 00:39] LABS: Basophils Percent Auto 0.5 % (0-2); Eosinophils Percent Auto 0.1 % (0-4); Hematocrit 38.2 % (37.0-47.0); Hemoglobin 13.1 g/dl (12.0-16.0); Imm Gran Abs Auto 0.02 X10*3/uL (0.00-0.03); Imm Gran Pct Auto 0.2 % (0.0-0.4); Lymphocytes Percent Auto 12.4 % (20-40); Mean Corpuscular HGB Conc 34.3 g/dl (31.0-35.0); Mean Corpuscular Volume 87.4 fL (80.0-98.0); Monocytes Absolute Auto 0.4 X10*3/uL (0.1-1.2); Monocytes Percent Auto 4.4 % (2-11); Neutrophils Absolute Auto 6.7 x10*3/uL (2.0-8.3); Neutrophils Percent Auto 82.4 % (45-73); Platelet Count 202 X10*3/uL (160-400); Red Blood Count 4.37 X10*6/uL (4.20-5.50); Red Cell Distribution Width 12.2 % (11.0-16.0); White Blood Count 8.1 X10*3/uL (4.8-10.8)
[2024-11-08 01:00] LABS: Alanine Aminotransferase 36 U/L (0-31); Albumin Level 4.5 g/dL (3.5-5.0); Alkaline Phosphatase 83 U/L (39-117); Anion Gap 13 (12-20); Aspartate Amino Transferase 41 U/L (5-31); Bilirubin Total 0.7 mg/dL (0.0-1.0); Blood Urea Nitrogen 7 mg/dL (9-16); Calcium 9.5 mg/dL (8.4-10.2); Carbon Dioxide 24 mmol/L (22-29); Chloride 88 mmol/L (96-108); Creatinine Clr Calc Pharmacy 74.4; Estimated Glomerular Filt Rate > 60; Glucose Random 133 mg/dL (60-115); Potassium 3.7 mmol/L (3.3-5.1); Sodium 121 mmol/L (135-145); Total Protein 7.5 g/dL (6.5-8.0)
--- NOTE | 2024-11-08 01:52 | ED_ITS ---
HPI - General Adult General Chief complaint: General Medical Stated complaint: Took multiple doses of High BP medicine Time Seen by Provider: 11/08/24 01:32 Source: patient Mode of arrival: ambulatory Limitations: no limitations History of Present Illness ED Provider: Dr. Michaelle Adams HPI narrative: Patient comes to the emergency room complaining of feeling lightheaded, dizzy. Patient states that earlier today she accidentally doubled up on her blood pressure medications. Patient states that she usually takes 5 mg of amlodipine and 20 mg of lisinopril. However, today she took the elbow accidentally. Patient states that she has been worried all day that she took the double BP meds, and has been drinking copious amounts of water to help her system flush the medications. Patient states that she still feels lightheaded. Patient denies any chest pain or shortness of breath, no nausea or vomiting, reports couple loose stools earlier this morning. No diarrhea. Patient admits that she has been drinking a lot and urinating quite a bit. Patient denies hematuria or dysuria, no flank pain, no fever or chills Related Data Allergies Allergy/AdvReac Type Severity Reaction Status Date / Time No Known Allergies Allergy Verified 11/08/24 00:19 Review of Systems 2 Review of Systems: Constitutional : No Weight loss, No Fever, No Chills, No Night Sweats, No Fatigue, No Malaise ENT/Mouth : No Hearing loss, No Ear Pain, No Nasal Congestion, No Sinus Pain, No Hoarseness, No sore throat, No Rhinorrhea, No Swallowing Difficulty Eyes: No Eye Pain, No Swelling, No Redness, No Foreign Body, No Discharge, No Vision Changes Cardiovascular : No Chest Pain, No SOB, No Dyspnea on Exertion, No Orthopnea, No Edema, No Palpitations Respiratory : No Cough, No Sputum, No Wheezing, No Smoke Exposure, No Dyspnea Gastrointestinal : No Nausea, No Vomiting, No Diarrhea, No Constipation, No abdominal Pain, No Hematochezia, No Melena Genitourinary : no irregular bleeding, No Dysuria, No Urinary Frequency, No Hematuria, No Urinary Incontinence, No Urgency, No Flank Pain, No Urinary Flow Changes, No Hesitancy Musculoskeletal : No joint pain, No Myalgias, No Joint Swelling Skin : No Skin Lesions, No rash Neuro : complaining of some weakness, no paresthesias no loss of consciousness, some dizziness/ lightheadedness Psych : No Anxiety/Panic, No Depression, No SI/HI/AH/VH, No Social Issues, Heme/Lymph: No Bruising, No Bleeding,No Lymphadenopathy Endocrine : No Polyuria, No Polydipsia, No Temperature Intolerance PMF Past Medical History Medical History Hypertension Social History Social History Patient Tobacco Use Status: Never used Tobacco Advance Directives: Yes Advance Directives Information Provided: No Advance Directives on File: No Do you have a plan to hurt others: No Plan Physical Exam ED Vital Signs: Vital Signs - 24 hr 11/08/24 00:15 11/08/24 01:56 Temperature 97.5 F 97.3 F Pulse Rate 62 71 Respiratory Rate 20 16 Blood Pressure 136/79 142/98 H Pulse Oximetry 100 95 Oxygen Delivery Method Room Air Room Air BMI result Body Mass Index 24.4 Const Other: Appearance: Alert. Oriented X3. No acute distress. coherent Eyes: Pupils equal, round and reactive to light. ENT: Pharynx normal. Neck: Normal inspection. Neck supple. No lymph nodes noted. No crepitus CVS: Normal heart rate and rhythm. Pulses normal. Normal S1 and S2 Respiratory: No respiratory distress. Breath sounds normal. No Wheezing. No rales Abdomen: Soft and nontender. No rigidity. No distention. Skin: Skin warm and dry. Normal skin color. Normal skin turgor. Extremities: No lower extremity edema. No Lacerations. No Rash Neuro: Oriented X 3. No motor deficit. No sensory deficit. Moving all extremities. No slurred speech. CN 2 through 12 grossly intact, able to walk with some assistance Psych: calm, cooperative, normal affect Medical Decision Making Medical Decision Making MDM Narrative: my interpretation of labs: Normal hematology, chemistry shows a sodium of 121, no other significant abnormalities. Patient's urinalysis is pending, along with sodium studies osmolality given the patient's history, it is likely that she drank too much water which Dilaudid her sodium. patient denies taking any psychiatric medications. I discussed the above-mentioned with Dr. Lynn, patient being admitted Differential Diagnosis Differential Diagnoses: The differential diagnosis associated with the presentation includes ( medication error, polydipsia, SIADH) Admission/Observation Consideration of admission/observation: Escalation of care including admission/observation considered Consult Healthcare Provider Management of the patient was discussed with: Hospitalist Lab Data MDM Lab Attestation statement: I reviewed the patient's lab results. 11/08/24 00:30 11/08/24 00:30 Labs: Lab Results 11/08/24 Range/Units 00:30 WBC 8.1 (4.8-10.8) X10*3/uL RBC 4.37 (4.20-5.50) X10*6/uL Hgb 13.1 (12.0-16.0) g/dl Hct 38.2 (37.0-47.0) % MCV 87.4 (80.0-98.0) fL MCH 30.0 (27.0-33.0) pg MCHC 34.3 (31.0-35.0) g/dl RDW 12.2 (11.0-16.0) % Plt Count 202 (160-400) X10*3/uL MPV 12.0 (9.4-12.3) fL Immature Gran % (Auto) 0.2 (0.0-0.4) % Neut % (Auto) 82.4 H (45-73) % Lymph % (Auto) 12.4 L (20-40) % Louisa % (Auto) 4.4 (2-11) % Eos % (Auto) 0.1 (0-4) % Baso % (Auto) 0.5 (0-2) % Lymph # (Auto) 1.0 L (1.2-4.9) X10*3/uL Louisa # (Auto) 0.4 (0.1-1.2) X10*3/uL Eos # (Auto) 0.0 (0.0-0.4) X10*3/uL Baso # (Auto) 0.0 (0.0-0.2) X10*3/uL Abs Immat Gran (auto) 0.02 (0.00-0.03) X10*3/uL Absolute Neuts (auto) 6.7 (2.0-8.3) x10*3/uL Absolute Nucleated RBC 0.000 (0.0-0.012) X10*3/uL Nucleated RBC % (auto) 0.0 (0.0-0.2) /100WBC Sodium 121 L (135-145) mmol/L Potassium 3.7 (3.3-5.1) mmol/L Chloride 88 L (96-108) mmol/L Carbon Dioxide 24 (22-29) mmol/L Anion Gap 13 (12-20) BUN 7 L (9-16) mg/dL Creatinine 0.59 (0.5-1.4) mg/dL Estim Creat Clear Calc 74.4 Estimated GFR > 60 Random Glucose 133 H (60-115) mg/dL Calcium 9.5 (8.4-10.2) mg/dL Total Bilirubin 0.7 (0.0-1.0) mg/dL AST 41 H (5-31) U/L ALT 36 H (0-31) U/L Alkaline Phosphatase 83 (39-117) U/L Total Protein 7.5 (6.5-8.0) g/dL Albumin 4.5 (3.5-5.0) g/dL Critical Care Time Critical Care Time Critical Care Time: Yes Total Critical Care Time: 60 Attestation: I have personally provided critical care time. Time includes review of lab data, radiology results, discussion with consultants, and monitoring for potential decompensation. Intervention performed as documented. Discharge Plan Discharge Clinical Impression: Acute hyponatremia, Accidental medication error Patient Disposition: Admitted As Inpatient Print Language: Guinean
[2024-11-08 02:15] LABS: MANUAL DIFF FLAG NO
[2024-11-08 02:16] LABS: Basophils Percent Auto 0.3 % (0-2); Eosinophils Percent Auto 0.1 % (0-4); Hematocrit 37.3 % (37.0-47.0); Hemoglobin 13.2 g/dl (12.0-16.0); Imm Gran Abs Auto 0.03 X10*3/uL (0.00-0.03); Imm Gran Pct Auto 0.3 % (0.0-0.4); Lymphocytes Absolute Auto 1.4 X10*3/uL (1.2-4.9); Mean Corpuscular HGB Conc 35.4 g/dl (31.0-35.0); Mean Corpuscular Hemoglobin 30.3 pg (27.0-33.0); Mean Corpuscular Volume 85.6 fL (80.0-98.0); Mean Platelet Volume 11.7 fL (9.4-12.3); Monocytes Absolute Auto 0.4 X10*3/uL (0.1-1.2); Monocytes Percent Auto 4.2 % (2-11); Neutrophils Absolute Auto 7.8 x10*3/uL (2.0-8.3); Neutrophils Percent Auto 81.1 % (45-73); Platelet Count 190 X10*3/uL (160-400); Red Blood Count 4.36 X10*6/uL (4.20-5.50); Red Cell Distribution Width 12.1 % (11.0-16.0); White Blood Count 9.7 X10*3/uL (4.8-10.8)
[2024-11-08 02:25] LABS: Osmolality, Serum 247 mosm/kg (281-305)
[2024-11-08 02:30] LABS: Osmolality Urine 488 mosm/kg (373-1093)
[2024-11-08 02:39] LABS: Alanine Aminotransferase 34 U/L (0-31); Albumin Level 4.6 g/dL (3.5-5.0); Alkaline Phosphatase 84 U/L (39-117); Anion Gap 15 (12-20); Aspartate Amino Transferase 34 U/L (5-31); Bilirubin Total 0.8 mg/dL (0.0-1.0); Blood Urea Nitrogen 7 mg/dL (9-16); Calcium 9.3 mg/dL (8.4-10.2); Carbon Dioxide 22 mmol/L (22-29); Chloride 88 mmol/L (96-108); Creatinine Clr Calc Pharmacy 74.4; Estimated Glomerular Filt Rate > 60; Glucose Random 133 mg/dL (60-115); Potassium 3.9 mmol/L (3.3-5.1); Sodium 121 mmol/L (135-145); Total Protein 7.5 g/dL (6.5-8.0)
[2024-11-08] MEDS: Heparin Sodium,Porcine 5,000 UNIT/ML VIAL 5000 UNIT SUBCUT ×3 (03:29→16:49)
[2024-11-08] MEDS: Lactated Ringers 1,000 ML 50 ML IVCONT (03:29)
--- NOTE | 2024-11-08 03:49 | P.HPHOSP_ITS ---
History of Present Illness Date of Service: 11/08/24 Chief Complaint: Dizziness 69-year-old female with a past medical history of hypertension presented to the hospital with a chief complaint of dizziness. Patient reports this morning she took extra dose of her lisinopril; and around noon time she started to feel dizzy and unsteady when trying to walk. Also had episodes of nausea and vomiting. As had 3 loose bowel movements. Denies any abdominal pain. Denies any chest pain. Reports he still feels lightheaded and dizzy. Denies any room spinning. Denies any numbness tingling or focal weakness. Patient has started to drink more water. Review of all other systems is negative except mentioned above ER course: Per ER team, patient's exam was grossly nonfocal; on labs noted to have sodium levels of 121. Blood pressure stable. No clear signs of infection. [facility] Medical History Hypertension Social History Patient Tobacco Use Status: Never used Tobacco Advance Directives: Yes Advance Directives Information Provided: No Advance Directives on File: No Do you have a plan to hurt others: No Plan Meds Allergies Allergy/AdvReac Type Severity Reaction Status Date / Time No Known Allergies Allergy Verified 11/08/24 00:19 Active Medications: Current Medications Acetaminophen (Acetaminophen 325 Mg Tablet) 650 mg PO Q6H PRN PRN Reason: Pain, Mild 1-3,fever,headache Calcium Carbonate (Calcium Carbonate 750 Mg Tab.Chew) 750 mg PO Q4H PRN PRN Reason: Heartburn Heparin Sodium (Porcine) (Heparin Sodium,Porcine 5,000 Unit/Ml Vial) 5,000 unit SUBCUT Q8H [facility] Last Admin: 11/08/24 03:29 Dose: 5,000 unit Lactated Ringer's (Lr) 1,000 mls @ 50 mls/hr IVCONT .Q20H [facility] Last Admin: 11/08/24 03:29 Dose: 50 mls/hr Magnesium Hydroxide (Milk Of Magnesia 30 Ml Oral.Susp) 30 ml PO DAILY PRN PRN Reason: Constipation Melatonin (Melatonin 3 Mg Tablet) 6 mg PO BEDTIME PRN PRN Reason: Insomnia Sodium Chloride (0.9 % Sodium Chloride Flush 3 Ml Syringe) 3 ml IVFLUSH QSHIFT [facility] Physical Exam 2 Vital Signs and Narrative: Vital Signs: Last Vital Signs Temp 97.3 F 11/08/24 01:56 Pulse 58 11/08/24 03:30 Resp 16 11/08/24 01:56 BP 149/54 H 11/08/24 03:30 Pulse Ox 98 11/08/24 03:30 O2 Del Method Room Air 11/08/24 01:56 BMI result Body Mass Index 24.4 Gen: Appears be in no acute distress HEENT: NCAT, Moist mucosa. Pulmonary: Vesicular breath sounds, fair air entry CVS: Normal S1-S2 Abdomen: BS+, Soft, Nontender Extremities: Warm well perfused Neuro: Alert and awake. Results Labs 11/08/24 02:09 11/08/24 02:09 Labs: Laboratory Results - last 24 hr 11/08/24 11/08/24 00:30 02:09 MCV 87.4 85.6 MCH 30.0 30.3 MCHC 34.3 35.4 H RDW 12.2 12.1 Plt Count 202 190 MPV 12.0 11.7 Immature Gran % (Auto) 0.2 0.3 Neut % (Auto) 82.4 H 81.1 H Lymph % (Auto) 12.4 L 14.0 L Wilkin % (Auto) 4.4 4.2 Eos % (Auto) 0.1 0.1 Baso % (Auto) 0.5 0.3 Lymph # (Auto) 1.0 L 1.4 Wilkin # (Auto) 0.4 0.4 Eos # (Auto) 0.0 0.0 Baso # (Auto) 0.0 0.0 Abs Immat Gran (auto) 0.02 0.03 Absolute Neuts (auto) 6.7 7.8 Absolute Nucleated RBC 0.000 0.000 Nucleated RBC % (auto) 0.0 0.0 Anion Gap 13 15 Estim Creat Clear Calc 74.4 74.4 Estimated GFR > 60 > 60 Random Glucose 133 H 133 H Osmolality 247 L Calcium 9.5 9.3 Total Bilirubin 0.7 0.8 AST 41 H 34 H ALT 36 H 34 H Alkaline Phosphatase 83 84 Total Protein 7.5 7.5 Albumin 4.5 4.6 Urine Osmolality 488 Ur Random Sodium 114.0 Assessment and Plan (1) Acute hyponatremia: Status: Acute Plan 69-year-old female with a past medical history of hypertension presented to the hospital with a chief complaint of dizziness. Dizziness: Patient reports her dizziness is persistent. Blood pressure currently stable. Orthostatic vitals Telemetry Will obtain CT angio head and neck MRI brain to rule out CVA Fall precautions PT/OT when ready for discharge Will obtain EKG and troponins Patient on maintenance IV fluids UA pending Hyponatremia: Patient on LR at 50 cc/hour Will repeat levels Nephrology consult Hypertension: Hold home antihypertensives for now DVT prophylaxis: SubQ heparin Code status: Full code Quality Stroke Does the patient have a stroke diagnosis?: No VTE Prior VTE?: No VTE Risk Level:: Medical - moderate - high VTE Device Contraindication: Treatment Not Indicated VTE Drug Contraindication: N/A - Med Ordered
--- NOTE | 2024-11-08 04:05 | PC.NURSE ---
pt takes lisinopril 20mg daily and amlodipine 5mg daily, admitting provider made aware.
[2024-11-08 04:29] LABS: Troponin-I High Sensitivity 4.1 ng/L (<3.5-17.0)
[2024-11-08] MEDS: 0.9 % Sodium Chloride Flush 3 ML SYRINGE IVFLUSH ×3 (08:01→21:11)
--- NOTE | 2024-11-08 10:57 | PHA.MEDREC ---
Addendum entered by Trudy Bernal RPh 11/08/24 11:09: reviewed by [facility]. Original Note: Pharmacy Consult ? Medication Reconciliation Pharmacy has completed the medication reconciliation. Patient confirmed she takes Amloipine 5 mg daily and Lisinopril 20 mg daily. Patient states she takes Glucosamine and Calcium vitamins, however doesn't know the strengths. Patient states she accidentally took a double dose of her blood pressure medications.
[2024-11-08] MEDS: iohexoL 350 MG/ML 100 ML INFUS..BTL IV (11:17)
--- NOTE | 2024-11-08 12:56 | PM.EVENT ---
Event Note Date of Service: 11/08/24 Event Note: 69-year-old female with a past medical history of hypertension presented to the hospital with a chief complaint of dizziness and found to have incidental Hyponatremia sodium of 121 Dizziness likely related to hyponatremia and not BP meds, BP is high and still c/o dizziness CTA of head and neck negative MRI is done result pending No arrythmia on monitor Hyponatremia, unclear etio, CXR Nephrology consult water restriction Frequent sodium level Urine studies hold lisinopril as can potentially cause hyponat remia HTN, continue norvasc and hold lisinopril as above Time Spent With Patient Time: Total time managing care of this patient today ____ minutes.
--- NOTE | 2024-11-08 12:59 | MHC.CM.PN ---
CM ATTEMPTED TO MEET WITH PT WHO WAS OFF UNIT CM TO REVISIT
[2024-11-08] MEDS: amLODIPine Besylate 5 MG TABLET PO (13:30)
--- NOTE | 2024-11-08 13:54 | PM.CNNEP ---
History of Present Illness Reason for Consult Consult date: 11/08/24 Chief Complaint Chief complaint: Hyponatremia History of Present Illness Narrative: 69-year-old female with a past medical history of hypertension presented to the hospital with a chief complaint of dizziness. Patient reports this morning she took extra dose of her lisinopril; and around noon time she started to feel dizzy and unsteady when trying to walk. Also had episodes of nausea and vomiting. As had 3 loose bowel movements. Denies any abdominal pain. Denies any chest pain. Reports he still feels lightheaded and dizzy. Denies any room spinning. Denies any numbness tingling or focal weakness. Patient has started to drink more water. [facility] Past Medical History Medical History Hypertension Social History Social History Household Members: Spouse Housing: House Do you presently have visiting nurse or other home services: No Patient Tobacco Use Status: Former Tobacco user Tobacco use type: Cigarette Currently Displaying Signs/Symptoms of Drug Intoxication Withdrawal: No Have you been hit, kicked, punched, or otherwise hurt by someone within the past year? If so, by whom?: No Do you feel safe in your current relationship?: Yes Is there a partner from a previous relationship who is making you feel unsafe now?: No Are you made to feel afraid or neglected: No Advance Directives: No Advance Directives Information Provided: No Advance Directives on File: No Do you have a plan to hurt others: No Plan Recently lost weight without trying: No Eating poorly because of decreased appetite: No Nutrition Risks: No Nutritional Risk Patient : No : No Meds Allergies Allergy/AdvReac Type Severity Reaction Status Date / Time No Known Allergies Allergy Verified 11/08/24 00:19 Active Medications: Current Medications Acetaminophen (Acetaminophen 325 Mg Tablet) 650 mg PO Q6H PRN PRN Reason: Pain, Mild 1-3,fever,headache Amlodipine Besylate (Amlodipine Besylate 5 Mg Tablet) 5 mg PO DAILY [facility]; Protocol Last Admin: 11/08/24 13:30 Dose: 5 mg Calcium Carbonate (Calcium Carbonate 750 Mg Tab.Chew) 750 mg PO Q4H PRN PRN Reason: Heartburn Heparin Sodium (Porcine) (Heparin Sodium,Porcine 5,000 Unit/Ml Vial) 5,000 unit SUBCUT Q8H [facility] Last Admin: 11/08/24 09:39 Dose: 5,000 unit Lactated Ringer's (Lr) 1,000 mls @ 50 mls/hr IVCONT .Q20H [facility] Last Admin: 11/08/24 03:29 Dose: 50 mls/hr Magnesium Hydroxide (Milk Of Magnesia 30 Ml Oral.Susp) 30 ml PO DAILY PRN PRN Reason: Constipation Melatonin (Melatonin 3 Mg Tablet) 6 mg PO BEDTIME PRN PRN Reason: Insomnia Sodium Chloride (0.9 % Sodium Chloride Flush 3 Ml Syringe) 3 ml IVFLUSH QSHIFT [facility] Last Admin: 11/08/24 13:32 Dose: 3 ml Home Medications ?Medication ?Instructions ?Recorded ?Confirmed ?Last Taken ?Type amlodipine 5 mg tablet 5 mg PO DAILY 11/08/24 11/08/24 11/07/24 History lisinopril 20 mg tablet 20 mg PO DAILY 11/08/24 11/08/24 11/07/24 History Physical Exam Vital Signs: Last Vital Signs Temp 97.1 F 11/08/24 12:00 Pulse 80 11/08/24 12:00 Resp 18 11/08/24 12:00 BP 137/74 11/08/24 12:00 Pulse Ox 100 11/08/24 12:00 O2 Del Method Room Air 11/08/24 12:00 BMI result Body Mass Index 24.8 Awake. Comfortable. Neck is supple. Mucosa moist. Lungs bilateral scattered rhonchi. Heart S1-S2 heard no gallop. Abdomen soft. Extremities no edema. No involuntary movements. No myoclonus. Results Lab Results 11/08/24 02:09 11/08/24 02:09 Lab results: Chemistry 11/08/24 11/08/24 00:30 02:09 Sodium 121 L 121 L Potassium 3.7 3.9 Carbon Dioxide 24 22 BUN 7 L 7 L Creatinine 0.59 0.59 Calcium 9.5 9.3 Hematology 11/08/24 11/08/24 00:30 02:09 WBC 8.1 9.7 Hgb 13.1 13.2 Plt Count 202 190 Urine Studies 11/08/24 02:09 Urine Osmolality 488 Assessment and Plan (1) Acute hyponatremia: Status: Acute Plan Most likely due to non osmotic ADH release. Clinically she appears euvolemic. Urine sodium is 114. Recommendations Restrict oral free water intake to 1 L per 24 hours. Change lisinopril to losartan 100 mg a day. Goal is to correct serum sodium at a rate of 0.5-1 millimole per L/hr and not exceed more than 10-12 millimoles in 24 hour. We will add urea powder 15 g p.o. b.i.d. x4 doses. Follow serum sodium levels every 6 hours. Procedures Date of Service Date of Service: 11/08/24
[2024-11-08 14:20] LABS: Anion Gap 13 (12-20); Carbon Dioxide 23 mmol/L (22-29); Chloride 93 mmol/L (96-108); Potassium 3.9 mmol/L (3.3-5.1); Sodium 125 mmol/L (135-145)
[2024-11-08] MEDS: Urea 15 GM POWDER PO ×2 (15:14→21:11)
--- NOTE | 2024-11-08 16:43 | MHC.CM.PN ---
PT REPORTS SHE LIVES WITH HER AND IS INDEPENDENT WITH CARE SHE HAS NO DME AND NO SERVICES COPY OF HCP REQUESTED PCP: TREY BLOUNT DCP: HOME NO SERVICES VIA PRIVATE TRANSPORT
[2024-11-08 17:51] LABS: Appearance Urine Clear; Color Urine Yellow; Glucose Urine UA Negative (Negative); Leukocyte Esterase Urine Negative (Negative); Nitrite Urine Negative (Negative); PH 6.5 (5.0-9.0); Specific Gravity - Urine <= 1.005 (1.005-1.025); UMIC TRIGGER UA YES; Urine Blood Trace (Negative); Urine Ketones Negative (Negative); Urine Protein Negative (Neg-Trace)
[2024-11-08 17:54] LABS: Bacteria Urine None Seen (None Seen); Hyaline Casts Urine 0-2 /LPF (0-2); RBC Urine 0-2 /HPF (0-2); Squamous Epithelial Cell Urine 0-2 /HPF (0-2); WBC Urine 0-5 /HPF (0-5)
[2024-11-09] VITALS (8 sets, daily range): BP systolic 91–131; BP diastolic 52–62; PULSE 47–77; RESP 16–20; TEMP 36.4–37.1; O2SAT 96–98
[2024-11-09] MEDS: Lactated Ringers 1,000 ML 50 ML IVCONT (01:38)
[2024-11-09] MEDS: Heparin Sodium,Porcine 5,000 UNIT/ML VIAL 5000 UNIT SUBCUT ×2 (01:39→09:11)
[2024-11-09] MEDS: Urea 15 GM POWDER PO (09:11)
[2024-11-09] MEDS: amLODIPine Besylate 5 MG TABLET PO (09:11)
[2024-11-09] MEDS: 0.9 % Sodium Chloride Flush 3 ML SYRINGE IVFLUSH (09:11)
[2024-11-09 09:33] LABS: Anion Gap 11 (12-20); Blood Urea Nitrogen 30 mg/dL (9-16); Calcium 9.2 mg/dL (8.4-10.2); Carbon Dioxide 25 mmol/L (22-29); Chloride 100 mmol/L (96-108); Creatinine Clr Calc Pharmacy 57.3; Estimated Glomerular Filt Rate > 60; Glucose Random 93 mg/dL (60-115); Potassium 4.1 mmol/L (3.3-5.1); Sodium 132 mmol/L (135-145)
--- NOTE | 2024-11-09 12:58 | PM.DS ---
DS: Providers Provider Date of Service: 11/09/24 Date of admission: 11/08/24 01:53 Date of discharge: 11/09/24 Primary care physician: Pretty Brooks NP Consults: 11/08/24 03:49 Consult to Nephrology Routine Consulting Provider: [facility] Reason for consultation: hyponatremia DS: Diagnosis Discharge Diagnosis (1) Acute hyponatremia: Status: Resolved DS: Summary Hospital Course Hospital Course: admission hpi Chief Complaint: Dizziness 69-year-old female with a past medical history of hypertension presented to the hospital with a chief complaint of dizziness. Patient reports this morning she took extra dose of her lisinopril; and around noon time she started to feel dizzy and unsteady when trying to walk. Also had episodes of nausea and vomiting. As had 3 loose bowel movements. Denies any abdominal pain. Denies any chest pain. Reports he still feels lightheaded and dizzy. Denies any room spinning. Denies any numbness tingling or focal weakness. Patient has started to drink more water. Review of all other systems is negative except mentioned above ER course: Per ER team, patient's exam was grossly nonfocal; on labs noted to have sodium levels of 121. Blood pressure stable. No clear signs of infection. hospital course: She presented with dizziness after inadvertently taking her blood pressure medications, lisinopril 20 mg daily and Norvasc 5 mg daily, twice in one day. Upon realizing the mistake, she drank a large amount of water in an attempt to flush her system. She also experienced nausea, vomiting, and three episodes of loose bowel movements. On presentation, her blood pressure was high, but her sodium level was 121. She was given intravenous fluids (IVF) and admitted. A CTA of the head and an MRI of the head showed no acute findings. She was evaluated by Nephrology, who recommended urea powder 15 g twice daily. Her symptoms have gradually resolved, and her sodium level has steadily risen to 132. Lisinopril has been discontinued. Her blood pressure is now low-normal, so she will continue Norvasc 5 mg for now. She should follow up with her primary care physician (PCP) for blood pressure monitoring and medication adjustment if needed. Nephrology recommended losartan, up to 100 mg, to replace lisinopril if necessary, as lisinopril can contribute to hyponatremia. The patient is comfortable and wishes to be discharged. Time Attestation Discharge Coordination Time (in mins): 45 Quality: Safe Use of Opioids Does Pt have an Active Cancer Diagnosis on the Problem List?: No Quality: Stroke Does the patient have a stroke diagnosis?: No Physical Exam Vital Signs: Vital Signs: Last Vital Signs Temp 98.8 F 11/09/24 11:17 Pulse 56 11/09/24 11:17 Resp 18 11/09/24 11:17 BP 120/53 L 11/09/24 11:17 Pulse Ox 97 11/09/24 11:17 O2 Del Method Room Air 11/09/24 11:17 BMI result Body Mass Index 24.8 DS: Data Data Completed and Pending Labs on day of discharge: Laboratory Results - last 24 hr 11/08/24 11/08/24 11/09/24 14:03 17:38 08:43 Sodium 125 L 132 L Potassium 3.9 4.1 Chloride 93 L 100 Carbon Dioxide 23 25 Anion Gap 13 11 L BUN 30 H Creatinine 0.83 Estim Creat Clear Calc 57.3 Estimated GFR > 60 Random Glucose 93 Calcium 9.2 Urine Color Yellow Urine Appearance Clear Urine pH 6.5 Ur Specific [place] <= 1.005 Urine Protein Negative Urine Glucose (UA) Negative Urine Ketones Negative Urine Blood Trace H Urine Nitrite Negative Ur Leukocyte Esterase Negative Urine RBC 0-2 Urine WBC 0-5 Ur Squamous Epith Cells 0-2 Urine Bacteria None Seen Hyaline Casts 0-2 Discharge Plan Discharge Anticipated Discharge Date/Time: 11/09/24 13:08 Patient Disposition: Home, Self-Care Discharge Diagnosis: Hyponatremia, accidental blood pressure overdose Referrals: Ben Downey MD [Physician, Nephrology] - 1 Week Pretty Brooks NP [Primary Care Provider, Internal Medicine] - 1 Week Discharge Medications: Continued amlodipine 5 mg tablet 5 mg PO DAILY Discontinued lisinopril 20 mg tablet 20 mg PO DAILY No Action calcium carbonate 500 mg calcium (1,250 mg) tablet 500 mg PO DAILY Discharge Orders: Discharge Order (Routine); Ordered 11/09/24 Ordered By: Westley Coates Diet: Advance to usual diet Activity on Discharge: As tolerated Stand Alone Forms: Patient Portal Discharge page Print Language: Estonian Care Plan Goals: recovery from hyponatremia Health Concerns: hyponatremia Plan of Treatment: stop taking Lisinopril do not exceed more than 1 liter of water daily follow up with your doctor in a week to have blood pressure check follow up with kidney doctor in a week, you will need lab work within a week Assessment: see above Discharge Date/Time: 11/09/24 15:52
--- NOTE | 2024-11-09 13:26 | MHC.CM.PN ---
Patient has been medically cleared for dc to home today, self care.
== END 2024-11-09 15:52 | disposition home or self-care (01) | DRG 918 ==
LOC: HO.ED 01:59 → HO.EDOVER 02:20 → HO.IMC 03:40
PROVIDERS: Admitting Provider Hospitalist; Emergency Provider Emergency Medicine; PCP Nurse Practitioner Family; Visit Provider Internal Medicine
DX: T46.4X1A Poisoning by angiotensin-converting-enzyme inhibitors, accidental (unintentional), initial encounter (principal); E87.1 Hypo-osmolality and hyponatremia; I10 Essential (primary) hypertension; Z87.891 Personal history of nicotine dependence; Z79.899 Other long term (current) drug therapy
CPT/HCPCS: 36415; 70496; 70498; 70551; 80048; 80051; 80053; 81001; 83930; 83935; 84300; 84484; 85025; 93005; 99285; J1644; J7120; Q9967

== ENCOUNTER 2024-11-08 01:53 | Outpatient (BNV) | payer MEDICARE, SELFPAY | END 2024-11-08 05:13 | PROVIDERS: Admitting Provider Hospitalist; Emergency Provider Emergency Medicine; PCP Nurse Practitioner Family; Visit Provider Internal Medicine | DX: Z13.6 Encounter for screening for cardiovascular disorders (principal) | CPT/HCPCS: 93010 ==

== ENCOUNTER 2024-11-08 01:53 | Outpatient (BNV) | payer MEDICARE, SELFPAY | END 2024-11-08 09:59 | PROVIDERS: Admitting Provider Hospitalist; Emergency Provider Emergency Medicine; PCP Nurse Practitioner Family; Visit Provider Radiology Diagnostic Radiology | DX: Q28.3 Other malformations of cerebral vessels (principal); I65.22 Occlusion and stenosis of left carotid artery; R42 Dizziness and giddiness | CPT/HCPCS: 70496; 70498; 70551 ==

== ENCOUNTER → 2024-11-08 01:53 | Outpatient (BNV) | payer MEDICARE, SELFPAY | PROVIDERS: Admitting Provider Hospitalist; Emergency Provider Emergency Medicine; PCP Nurse Practitioner Family; Visit Provider Hospitalist | DX: E87.1 Hypo-osmolality and hyponatremia (principal) | CPT/HCPCS: 99223; 99499 ==

== ENCOUNTER → 2024-11-08 01:53 | Outpatient (BNV) | payer MEDICARE, SELFPAY | PROVIDERS: Admitting Provider Hospitalist; Emergency Provider Emergency Medicine; PCP Nurse Practitioner Family; Visit Provider Internal Medicine Hypertension Specialist | DX: E87.1 Hypo-osmolality and hyponatremia (principal) | CPT/HCPCS: 99233 ==

== ENCOUNTER 2024-11-12 07:03 | Outpatient (REF) | payer MEDICARE, SELFPAY ==
--- OUTSIDE RECORDS SUMMARY | 2024-11-12 07:06 | XMS_ITS | Patient Health Record ---
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 Name Role Phone Pretty Brooks Primary Care Provider Freddie Adler Unavailable [phone] Allergies No Known Allergies Reason For Referral [...] Status Risk Notes Problem Acquired hallux rigidus (6161730) Hallux rigidus, left foot (M20.22) Active confirmed Problem Acquired hallux rigidus (3947510) Hallux rigidus, right foot (M20.21) Active confirmed Vital Signs Height 5 ft 3 in in 12/20/2023 Weight 140 lbs 12/20/2023 BMI 24.80 kg/m2 12/20/2023 Encounters Encounter Location Date Provider Diagnosis [facility] [place] [place] [address] 12/20/2023 Freddie Cunningham Pain in left foot [...] Insured Coverage Start Date Coverage End Date [facility] 65 Medicare [address] [place] [address] [id number] Trinidad Raymond Self - patient is the insured Medical (General) History Medical History History ICD Code Arthritis High blood pressure Measles Warts Hallux Valgus 735.0 Hallux Valgus 729.5 Pain in Limb 719.97 Arthritis - Degenerative 726.91 Exostosis 735.4 Hammer toe undefined Anxiety Back,Hip,and Knee pain covid-19 Surgical History Surgery Date(Month/Year) section 1978 bunionectomy L & R 2009 Hospitalization History Reason Date(Month/Year) [facility] ? heart attack 2012
[2024-11-12 08:10] LABS: Anion Gap 10 (12-20); Blood Urea Nitrogen 18 mg/dL (9-16); Calcium 9.5 mg/dL (8.4-10.2); Carbon Dioxide 29 mmol/L (22-29); Chloride 106 mmol/L (96-108); Estimated Glomerular Filt Rate > 60; Glucose Fasting 94 mg/dL (60-99); Potassium 4.3 mmol/L (3.3-5.1); Sodium 141 mmol/L (135-145)
== END 2024-11-12 07:04 | disposition home or self-care (01) ==
LOC: HO.LAB 07:03
PROVIDERS: PCP Nurse Practitioner Family; Visit Provider Internal Medicine
DX: E87.1 Hypo-osmolality and hyponatremia (principal)
CPT/HCPCS: 36415; 80048

== ENCOUNTER 2024-11-14 13:59 | Outpatient (AMB) | payer BC, SELFPAY ==
[2024-11-14 14:01] VITALS: BP 140/80; PULSE 60; O2SAT 96; BMI 23.2
--- NOTE | 2024-11-14 14:01 | HO.NEPHOV ---
Vital Signs 11/14/24 14:01 Height 5 ft 3 in Weight 131 lb BMI 23.2 BP 140/80 H Blood Pressure Location Rt brachial Position Sitting Pulse 60 Pulse Source Pulse Oximeter Pulse Oximetry (%) 96 Oxygen Delivery Method Room Air Intake Visit Reasons: [facility] [place]Conf Kitchen Stewardess Required: No Accompanied by: Self / Same As Patient Allergies No Known Allergies Allergy (Verified 11/14/24 14:04) Medication List - Last Reconciled 11/14/24 by Ben Downey MD amlodipine 5 mg PO DAILY calcium carbonate 500 mg PO DAILY HPI Comments Details: 69-year-old woman seen for hyponatremia. She was recently hospitalized with severe hyponatremia of 121 millimoles. Prior to hospitalization she was drinking plenty of water. She was on lisinopril as well. Lisinopril was discontinued. She was placed on p.o. water restriction. She received few doses of urea powder refill. Serum sodium gradually improved rate of correction was acceptable. As of yesterday serum sodium was 141. During hospitalization she had MRA of the head which was unremarkable. She has been monitoring her blood pressure at home systolic blood pressures around 140 mm Hg. She is currently on amlodipine. [facility] Medical History Hypertension Social History Household Members: Spouse Housing: House Do you presently have visiting nurse or other home services: No Patient Tobacco Use Status: Former Tobacco user Tobacco use type: Cigarette service: No Physical Exam Vital Signs: Last Vital Signs Pulse 60 11/14/24 14:01 BP 140/80 H 11/14/24 14:01 Pulse Ox 96 11/14/24 14:01 Oxygen Delivery Method Room Air 11/14/24 14:01 BMI result Body Mass Index 23.2 Comfortable Neck supple no JVD. Lungs entry equal no rales. Heart S1-S2 heard no gallop or rub. Abdomen soft nontender. Neuro alert awake oriented. No asterixis. Extremities no edema. Results Reviewed Nephrology Results: Hgb 13.2 g/dl (12.0-16.0) 11/08/24 WBC 9.7 X10*3/uL (4.8-10.8) 11/08/24 Plt Count 190 X10*3/uL (160-400) 11/08/24 Sodium 141 mmol/L (135-145) 11/12/24 Potassium 4.3 mmol/L (3.3-5.1) 11/12/24 Chloride 106 mmol/L (96-108) 11/12/24 Carbon Dioxide 29 mmol/L (22-29) 11/12/24 BUN 18 mg/dL (9-16) H 11/12/24 Creatinine 0.78 mg/dL (0.5-1.4) 11/12/24 Calcium 9.5 mg/dL (8.4-10.2) 11/12/24 Urine Protein Negative mg/dL (Neg-Trace) 11/08/24 Assessment & Plan Assessment & Plan (1) Acute hyponatremia: Code(s): E87.1 - Hypo-osmolality and hyponatremia Category: Medical Plan Pleasant 69-year-old woman with hyponatremia and hypertension. Hyponatremia was most likely due to decreased free water clearance in the setting of increase free water intake. There is a small probability that lisinopril could have been a contributing factor as well. Serum sodium has normalized and currently normal range. Recheck serum sodium in the next few days and if it is in the normal range we could certainly discontinue p.o. water restriction. Hypertension Blood pressure is borderline. She will see her PCP in the next few days. If the systolic blood pressure stays above 140 mm Hg I would recommend starting her on valsartan 80 mg once a day and titrate the dose. Renal function stable at baseline with a serum creatinine of 0.78 mg/dL. Orders: Orders Basic Metabolic Panel 3 Days E87.1 - Hypo-osmolality and hyponatremia Coding Level of Care Code Est Pt Level 4 (40169) Diagnoses Acute hyponatremia E87.1
--- OUTSIDE RECORDS SUMMARY | 2024-11-14 16:30 | XMS_ITS | Patient Health Record ---
[facility] Address [address] [place] [address] Care Team Providers Care H[place]head Hooper Name Role Phone Pretty Brooks Primary Care Provider Freddie Adler Unavailable [phone] Allergies No Known Allergies Reason For Referral [...] Status Risk Notes Problem Acquired hallux rigidus (2695114) Hallux rigidus, left foot (M20.22) Active confirmed Problem Acquired hallux rigidus (0678624) Hallux rigidus, right foot (M20.21) Active confirmed Vital Signs Height 5 ft 3 in in 12/20/2023 Weight 140 lbs 12/20/2023 BMI 24.80 kg/m2 12/20/2023 Encounters Encounter Location Date Provider Diagnosis [facility] [address] [place] [address] 12/20/2023 Freddie Cunningham Pain in left foot [...] Insured Coverage Start Date Coverage End Date [facility] [employer] [address] [place] [address] [id number] Trinidad Raymond Self - patient is the insured Medical (General) History Medical History History ICD Code Arthritis High blood pressure Measles Warts Hallux Valgus 735.0 Hallux Valgus 729.5 Pain in Limb 719.97 Arthritis - Degenerative 726.91 Exostosis 735.4 Hammer toe undefined Anxiety Back,Hip,and Knee pain covid-19 Surgical History Surgery Date(Month/Year) section 1978 bunionectomy L & R 2009 Hospitalization History Reason Date(Month/Year) [facility]- ? heart attack 2012
== END 2024-11-14 15:17 | disposition home or self-care (01) ==
LOC: HO.HKA 14:00
PROVIDERS: PCP Nurse Practitioner Family; Visit Provider Internal Medicine Hypertension Specialist
DX: E87.1 Hypo-osmolality and hyponatremia (principal)
CPT/HCPCS: 99214